=== PATIENT | male | born 1980 | race Caucasian/White ===

== ENCOUNTER 2021-12-31 13:08 | Emergency (ER) | payer BC, SELFPAY ==
--- NOTE | ~2021-12-31 | XR_ITS ---
EXAMINATION: XR finger 3rd RT min 2V DATE: 12/31/2021 13:44 INDICATION: Right hand third digit injury. TECHNIQUE: 4 views of right hand third digit were obtained. COMPARISON: None. FINDINGS: There is a comminuted fracture of tuft of third distal phalanx. There is mild osteoarthriti s of third metacarpophalangeal joint. IMPRESSION: 1. Comminuted fracture of tuft of third distal phalanx. Reviewed, dictated and finalized at location A.
[2021-12-31 13:14] VITALS: BP 120/72; PULSE 66; RESP 14; TEMP 36.3; O2SAT 100
--- NOTE | 2021-12-31 14:29 | ED.WOUNDLAC ---
HPI - Wound/Laceration General Chief Complaint: Wound/Laceration Stated Complaint: Smashed Middle Finger, Bleeding Time Seen by Provider: 12/31/21 13:27 Source: patient Mode of arrival: ambulatory Limitations: no limitations History of Present Illness HPI narrative: Patient is a 41-year-old male who presents to the ED with report of a laceration to his right third finger. Patient reports he was splitting wood with a sledgehammer today when the wedge slipped and he hit his finger with a sledgehammer. He sustained a laceration to the right third digit distal tip, involving the nail. Part of his nail has already been removed prior to arrival. Patient reports having mild decreased sensation to his distal tip. No other injuries. No numbness, tingling. Tetanus status unknown, definitely not within the last 5 years he reports. Related Data Allergies Allergy/AdvReac Type Severity Reaction Status Date / Time No Known Allergies Allergy Unverified 09/03/18 22:22 Review of Systems Review of Systems: CONSTITUTIONAL: Denies fever. SKIN: Reports laceration to right 3rd finger. NEUROLOGIC: Reports mild decreased sensation to right third finger. Denies tingling, numbness. All systems reviewed & are unremarkable except as noted in HPI and below PMFSH Past Medical History Medical History (Updated 01/01/22 @ 00:00 by Eulalia Dasowmya) No pertinent past medical history Surgical History Surgical History (Updated 12/31/21 @ 14:35 by Lilo Walters PA-C) History of appendectomy Family History Family History (Updated 02/29/16 @ 23:21 by DOCTOR UNKNOWN) Mother Patient's mother is in good health Father Patient's father is in good health Sibling Patient's sister is in good health Patient's brother is in good health Social History Social History (Updated 12/31/21 @ 14:35 by Lilo Walters PA-C) Smoking status: Never smoker Alcohol intake: current Exam Narrative: GENERAL: Well appearing, well-nourished, non-toxic, in no acute distress. HEAD: Normocephalic, atraumatic. RESPIRATORY: Airway patent, respirations nonlabored. CARDIOVASCULAR: Regular rate and rhythm without murmurs, rubs, or gallops. Radial pulses 2+ and equal bilaterally. MUSCULOSKELETAL: Moves all extremities. Strength/ROM intact. Laceration to right third finger lateral side distal phalanx, starting on lateral edge of finger pad, extending across horizontally fpc through the exposed nail bed. Nail completely absent. Structure of eponychium intact. Sharp sensation intact to distal R 3rd digit. SKIN: Warm, dry. NEURO: A&O X3. Speech clear. Cranial nerves II-XII grossly intact. Steady gait. No ataxic movements. PSYCHIATRIC: Appropriate mood and affect. Normal interaction. Course Consultations Consultation #1: Discussed case with Dr. Patricio, Plastics @ [facility]. Advised OK to suture closed, stent open nail bed with aluminum to avoid deformities of future nail growth. Patient to follow up in office in the next week. Given number to call. Date: 12/31/21 Time: 15:55 Vital Signs Vital signs: Vital Signs Temperature 97.4 F L 12/31/21 13:14 Pulse Rate 66 12/31/21 13:14 Respiratory Rate 14 12/31/21 13:14 Blood Pressure 120/72 12/31/21 13:14 Pulse Oximetry 100 12/31/21 13:14 Oxygen Delivery Room Air 12/31/21 13:14 Temperature 97.4 F L 12/31/21 13:14 Pulse Rate 66 12/31/21 13:14 Respiratory Rate 14 12/31/21 13:14 Blood Pressure 120/72 12/31/21 13:14 Pulse Oximetry 100 12/31/21 13:14 Oxygen Delivery Room Air 12/31/21 13:14 Procedures Laceration Laceration 1: Time: 16:15 Site: hand (3rd digit) Side (If applicable): right Size (cm): 2 Description: linear and other (lateral edge of R 3rd digit extending horizontally fpc across nailbed) Depth: simple, single layer Local Anesthetic: other anesthetic (digital block) Pre-repair: wound explored, irriga
[2021-12-31] MEDS: TETANUS,DIPHTHERIA,AC PERTUSSIS ADULT (0.5 ML) BOOSTRIX IM (14:41)
[2021-12-31] MEDS: ceFAZolin SODIUM 1 GM VIAL IM (14:41)
[2021-12-31] MEDS: WATER, STERILE FOR INJECTION 10 ML VIAL XX (14:43)
== END 2021-12-31 17:25 | disposition home or self-care (01) ==
PROVIDERS: Emergency Provider Emergency Medicine; PCP Physician Assistant
DX: S62.632B Displaced fracture of distal phalanx of right middle finger, initial encounter for open fracture (principal); Z23 Encounter for immunization; W22.8XXA Striking against or struck by other objects, initial encounter
CPT/HCPCS: 12001; 73140; 90471; 90715; 96372; 99283; J0690

== ENCOUNTER 2023-08-09 09:29 | Emergency (ER) | payer BC, SELFPAY ==
--- NOTE | 2023-08-09 09:36 | ED.URI ---
HPI - URI/Sore Throat General Chief Complaint: Upper Respiratory Infection Stated Complaint: Sinus Time Seen by Provider: 08/09/23 09:54 Source: patient and RN notes reviewed Mode of arrival: ambulatory Limitations: no limitations History of Present Illness HPI Narrative: [age] year old male presents with concern for 2-4 day history of sore throat, sinus congestion and drainage, cough, fever. He reports fever of up to 101. Reports decreased appetite. Reports he took a COVID test on Thursday that was negative MD elicited complaint: fever Related Data Home Medications Medication Instructions Recorded Confirmed fluticasone propionate 50 50 mcg intranasal DAILY 08/09/23 08/09/23 mcg/actuation nasal spray,suspension Allergies Allergy/AdvReac Type Severity Reaction Status Date / Time hydrocodone AdvReac Nausea Verified 08/09/23 09:51 Review of Systems Review of Systems: CONSTITUTIONAL: Reports malaise, fever. EYES: Denies visual changes, redness, or discharge. ENT: Reports rhinorrhea, congestion, and sore throat. CARDIOVASCULAR: Denies chest pain, palpitations, or edema. RESPIRATORY: Reports cough. Denies dyspnea. GASTROINTESTINAL: Denies abdominal pain, nausea, vomiting, diarrhea SKIN: Denies rash or itching. MUSCULOSKELETAL: Denies myalgia. NEUROLOGIC: Reports headache. All systems reviewed & are unremarkable except as noted in HPI and below PMFSH Past Medical History Medical History (Updated 08/09/23 @ 10:03 by Sapphire Tyson NP) No pertinent past medical history Surgical History Surgical History (Updated 12/31/21 @ 14:35 by Lilo Stokes PA-C) History of appendectomy Family History Family History (Updated 02/29/16 @ 23:21 by DOCTOR UNKNOWN) Mother Patient's mother is in good health Father Patient's father is in good health Sibling Patient's sister is in good health Patient's brother is in good health Social History Social History (Updated 12/31/21 @ 14:35 by Lilo Stokes PA-C) Smoking status: Never smoker Alcohol intake: current Comments At time of signature, agree with nursing past medical, surgical, social and family history. There is no relevant family history pertinent to the presenting complaint Exam Narrative: GENERAL: Nontoxic-appearing, well-nourished, and in no acute distress. HEAD: Normocephalic EYES: PERRLA, conjunctivae clear ENT: Nares clear. Mucous membranes moist. TM pearly monk with dull light reflex bilaterally; no tragal tenderness. Oropharynx not erythematous without lesions. Tonsils not enlarged and without exudate, no drooling, no hoarseness, no trismus, uvula midline. NECK: Supple. No lymphadenopathy CHEST: Clear to auscultation, breath sounds equal. No wheezing, rhonchi, rales, or stridor. No respiratory distress, speaks in full sentences. HEART: Regular rate and rhythm. No murmur heard. SKIN: Warm, dry, no rash. NEURO: Alert and oriented x3. PSYCH: Normal mood and affect Course Course Emergency Course: Patient is aware of diagnosis, understands and agrees to treatment plan. Anticipatory guidance given. Patient agrees to follow-up as directed and is aware of reasons to seek care at the emergency department. Portions of this record may have been created with voice recognition software Level of Care: Express Care Visit Vital Signs Vital signs: Reviewed. MDM - URI/Sore Throat MDM Narrative Medical decision making narrative: Differential diagnosis considered: [place] virus, strep pharyngitis, allergic rhinitis, upper respiratory tract infection, sinusitis, rhinosinusitis, nasopharyngitis. viral pharyngitis, otitis media, otitis externa, pneumonia, bronchitis, viral cough syndrome, viral syndrome, and influenza. Exam findings show no acute concerns or changes; patient is non-toxic appearing and is in no distress. Patient is appropriate for outpatient treatment and follow-up. Lab Data Attestation: I reviewed the
[2023-08-09 09:47] VITALS: BP 130/81; PULSE 96; RESP 16; TEMP 36.6; O2SAT 98
== END 2023-08-09 10:10 | disposition home or self-care (01) ==
PROVIDERS: Emergency Provider Nurse Practitioner; PCP Physician Assistant
DX: U07.1 COVID-19 (principal); Z20.822 Contact with and (suspected) exposure to COVID-19
CPT/HCPCS: 87081; 87426; 87804; 87880; 99213; C9803; G0463

== ENCOUNTER 2025-02-12 08:42 | Emergency (ER) | payer BC, SELFPAY ==
[2025-02-12 08:55] VITALS: BP 131/83; PULSE 74; RESP 16; TEMP 36.6; O2SAT 98
--- NOTE | 2025-02-12 09:00 | ED_ITS ---
HPI - Ear Problem General Chief complaint: Ear Stated complaint: Left Ear Irritation Patient presents to Express Care complaints of left ear pain that began over the last couple days. Patient noted he was recently was on vacation and swimming frequently. patient does also note that he has frequent ear wax problems in the left ear. Denies nasal congestion, sinus pain, drainage from ear, headaches, dizziness, fever, chills, body aches, nausea vomiting diarrhea. Related Data Home Medications ?Medication ?Instructions ?Recorded ?Confirmed ?Last Taken ?Type fluticasone propionate 50 50 mcg intranasal DAILY 08/09/23 08/09/23 Unknown History mcg/actuation nasal spray,suspension Allergies Allergy/AdvReac Type Severity Reaction Status Date / Time hydrocodone AdvReac Nausea Verified 02/12/25 08:46 Review of Systems Constitutional: Constitutional: Reports as per HPI, Denies chills, Denies fatigue, Denies fever(s) and Denies weakness Eyes: Eyes: Reports no additional eye complaints ENT: Reports as per HPI, Denies dysphagia, Denies vertigo, Denies dizziness, Denies epistaxis, Denies nasal congestion and Denies sore throat Comments: Left ear pain Cardiovascular: Cardiovascular: Reports no additional cardiovascular complaints Respiratory: Respiratory: Reports as per HPI, Denies chest congestion and Denies cough Gastrointestinal: Gastrointestinal: Reports no additional gastrointestinal complaints Genitourinary: Genitourinary: Reports no additional male genitourinary complaints Musculoskeletal: Musculoskeletal: Reports no additional musculoskeletal complaints Neurologic: Reports as per HPI, Denies vertigo, Denies dizziness and Denies headache(s) Psychiatric: Psychiatric: Reports no additional psychiatric complaints Endocrine: Endocrine: Reports no additional endocrine complaints Hematologic/Lymphatic: Hematologic/Lymphatic: Reports no additional hematologic/lymphatic complaints Allergic/Immunologic: Allergic/Immunologic: Reports no additional allergic/immunologic complaints FOR[facility]LY [facility], [facility] Past Medical History Medical History (Updated 02/12/25 @ 09:45 by TRISTEN Garcia) No pertinent past medical history Surgical History Surgical History (Updated 12/31/21 @ 14:35 by Lilo Stokes PA-C) History of appendectomy Family History Family History (Updated 02/29/16 @ 23:21 by DOCTOR UNKNOWN) Mother Patient's mother is in good health Father Patient's father is in good health Sibling Patient's sister is in good health Patient's brother is in good health Social History Social History (Updated 12/31/21 @ 14:35 by Lilo Stokes PA-C) Smoking status: Never smoker Alcohol intake: current Exam Const: General: healthy appearing and no acute distress Nutritional Appearance: well nourished Orientation/consciousness: patient oriented x3 Limitations: no limitations HENMT: Head: normal to inspection Ears: external ears normal and TM's normal bilaterally Face/Nose/Sinus: Normal external nose present Face and sinus: normal facial exam and sinuses nontender Mouth: Yes Normal oral and palatal mucosa present Throat: posterior oropharynx normal Other: diffuse cerumen noted in left ear, right ear canal normal. After cerumen removal diffuse erythema, drainage, and edema noted to left ear canal Neck: Neck: no lymphadenopathy Resp: Effort & Inspection: normal respiratory effort Auscultation: clear to auscultation bilaterally Cardio: Rate: regular rate Rhythm: regular rhythm Skin: General skin exam: normal color Rashes: no rashes Wounds: no wounds Neuro: General: patient oriented x3 Speech: normal speech Gait exam (Neuro): Normal gait present Psych: Mental Status: mental status grossly normal Affect: normal affect Attitude: cooperative Course Course Level of Care: Express Care Visit Vital Signs Vital signs: Vital Signs Temperature 97.8 F 02/12/25 08:55 Pulse Rate 74 02/12/25 08:55 Respiratory Rate 16 02/12/25 08:55 Blood Pressure 131/83 02/12/25 08:55 Pulse Oximetry 98 02/12/25 08:55 Oxygen Delivery Room Air 02/12/25 08:55 Temperature 97.8 F 02/12/25 08:55 Pulse Rate 74 02/12/25 08:55 Respiratory Rate 16 02/12/25 08:55 Blood Pressure 131/83 02/12/25 08:55 Pulse Oximetry 98 02/12/25 08:55 Oxygen Delivery Room Air 02/12/25 08:55 Procedures Ear Wax Removal Left Ear: Ear Wax Removal Date: 02/12/25 Ear Wax Removal Time: 09:43 Cerumenolytic Used: other ( warm water and hydrogen peroxide) Results: Re-examined: cerumen removed completely TM Examination: TM(s) intact, normal appearance Ear Canal Exam: other ( diffuse edema and erythema) Patient Tolerated Procedure: well Complications: no problems Technique: ear canal irrigated and ear canal curetted Medical Decision Making MDM Narrative Medical decision making narrative: cerumen removed, otitis externa noted after removal Discharge instructions reviewed with patient, as well as provided in writing per nursing staff. The instructions also include specific and strict return/GO TO THE ER as well as f/u information. All questions have been answered, and the patient deny any further questions with discharge and discharge plan. Differential Diagnosis Differential Diagnosis: otitis externa, otitis media, sinusitis, seasonal allergies Medical Records Medical records reviewed: Yes I reviewed the external patient's medical records. Vital Signs Vital Signs: Vital Signs Temperature 97.8 F 02/12/25 08:55 Pulse Rate 74 02/12/25 08:55 Respiratory Rate 16 02/12/25 08:55 Blood Pressure 131/83 02/12/25 08:55 Pulse Oximetry 98 02/12/25 08:55 Oxygen Delivery Room Air 02/12/25 08:55 Temperature 97.8 F 02/12/25 08:55 Pulse Rate 74 02/12/25 08:55 Respiratory Rate 16 02/12/25 08:55 Blood Pressure 131/83 02/12/25 08:55 Pulse Oximetry 98 02/12/25 08:55 Oxygen Delivery Room Air 02/12/25 08:55 Discharge Plan Discharge Clinical Impression: Otitis externa, Impacted cerumen of left ear Patient Disposition: Home Condition: Stable Instructions: Antibiotic Form, Carbamide Peroxide (Into the ear), Swimmer's Ear (ED) Additional Instructions: -Ear drops as directed for 7-10 days until the pain and swelling are gone. -When administer drug into the affected ear; make sure to ly down with the affected ear facing upward, message the ear canal to help the drops reach the medial end of the canal, then remain in that position for at least 5 mintues. -Avoid using cotton tipped applicator for ears cleaning -Avoid exposing swimming or exposing the affected ear to water during the treatment period Take or alternate tylenol or ibuprofen every 4 - 6 hours if needed for pain. Follow up with primary care provider if condition is not improving in 7 days or sooner if there is new concern. Patient Language: Malay Prescriptions: New ciprofloxacin-dexamethasone 0.3-0.1 % drops,suspension 4 drp EACH EAR Q12H 7 Days Qty: 7.5 0RF No Action fluticasone propionate 50 mcg/actuation spray,suspension 50 mcg INTRANASAL DAILY Follow-up/Referrals: Lore,ARACELY Bolton [Primary Care Provider] - Time of Disposition: 09:46
== END 2025-02-12 09:51 | disposition home or self-care (01) ==
PROVIDERS: Emergency Provider Nurse Practitioner Family; PCP Physician Assistant
DX: H60.92 Unspecified otitis externa, left ear (principal); H61.22 Impacted cerumen, left ear
CPT/HCPCS: 69210; 99213; G0463